=== PATIENT | female | born 1975 | race Two or more races ===

== ENCOUNTER 2018-02-07 19:58 | Emergency (ER) | payer OTHER ==
[~2018-02-07] VITALS: Ht 167.6 cm; Wt 68.0 kg
[2018-02-07 20:11] VITALS: BP 137/56
--- NOTE | 2018-02-07 20:13 | NUR ---
PT AMBULATED TO ER BED 04
--- NOTE | 2018-02-07 20:14 | NUR ---
42/F CAME IN C/O 01/13 ACHING L SHOULDER PAIN, RADIATING TO L ARM AND LOWER BACK, X4 HOURS. S/P FALL, PT STATED SHE "SLIPPED ON A BLUEBERRY IN [place]." PT DENIES HEAD TRAUMA, NO OBVIOUS TRAUMA NOTED, SKIN IS INTACT, PINK/WARM/DRY, +CMS. AAOX4, PERRL, WITH EVEN AND STEADY GAIT; LUNGS CLEAR BL, BREATHING UNLABORED; HR EVEN AND REGULAR, BL PERIPHERAL PULSES PRESENT; BS ACTIVE X4, NO TENDERNESS TO PALPATION; PT DENIES ANY FEVER, CP, SOB, OR COUGH, N/V/D AT THIS TIME; VSS; PATIENT POSITIONED FOR COMFORT; HOB ELEVATED; BEDRAILS UP X2; BED DOWN.
[2018-02-07] MEDS ORDERED: KETOROLAC 60 MG/2 ML VIAL IM ONE (20:50)
--- NOTE | 2018-02-07 21:00 | NUR ---
PT TAKEN TO XR
[2018-02-07 21:38] VITALS: BP 135/60
--- NOTE | 2018-02-07 21:38 | NUR ---
Patient discharged with v/s stable. Written and verbal after care instructions given and explained. Patient alert, oriented and verbalized understanding of instructions. Ambulatory with steady gait. All questions addressed prior to discharge. ID band removed. Patient advised to follow up with PMD. Rx of NAPROSYN 500MG given. Patient educated on indication of medication including possible reaction and side effects. Opportunity to ask questions provided and answered.
== END 2018-02-07 21:38 | disposition home or self-care (01) ==
LOC: MED 19:58
DX: S43.492A Other sprain of left shoulder joint, initial encounter (principal); M54.5 Low back pain; W01.0XXA Fall on same level from slipping, tripping and stumbling without subsequent striking against object, initial encounter; Y93.89 Activity, other specified; Y92.89 Other specified places as the place of occurrence of the external cause; Y99.8 Other external cause status
CPT/HCPCS: 72110; 73030; 96372; 99284; J1885